=== PATIENT | male | born 1950 | race Caucasian/White ===

== ENCOUNTER 2019-03-22 16:38 | Inpatient (IN) | payer MEDICAID ==
[~2019-03-22] VITALS: Ht 170.2 cm; Wt 70.0 kg
[2019-03-22] MEDS ORDERED: SOD CHLORIDE 0.9% 1,000 ML IV STA (16:47)
[2019-03-22] MEDS ORDERED: ONDANSETRON 4 MG INJ IV PRN ×2 (18:00→19:30)
[2019-03-22] MEDS ORDERED: ACETAMINOPHEN 325 MG TAB PO PRN ×2 (18:00→19:30)
[2019-03-22] MEDS ORDERED: AMLO-147 PO (18:01)
[2019-03-22] MEDS ORDERED: PSEU60TA2 PO (18:01)
[2019-03-22] MEDS ORDERED: TAMS-14 PO (18:02)
[2019-03-22] MEDS ORDERED: HYDR25TA6 PO (18:02)
[2019-03-22] MEDS ORDERED: DOCU-144 PO (18:03)
[2019-03-22] MEDS ORDERED: MULTI PO (18:03)
[2019-03-22] MEDS ORDERED: HYDR10FO PR (18:04)
--- NOTE | 2019-03-22 19:17 | HP ---
Date/Time of Note Date/Time of Note DATE: 03/22/19 TIME: 19:11 Assessment/Plan VTE Prophylaxis Pharmacological prophylaxis: apixaban Lines/Catheters IV Catheter Type (from [facility]): [facility] Assessment/Plan Hospital Course 1. A. fib-newly diagnosed Patient with 6 months of intermittent palpitations but no prior diagnosis of A. fib Check thyroid panel and echo Cardiology consultation with obtained Start Eliquis 2. Pulmonary edema Chest x-ray shows mild pulmonary vascular congestion and a small left pleural effusion Lasix 40 mg IV daily Follow-up on echo 3. Hypertension Continue home meds 4. BPH Continue home meds 5. Mild hypernatremia Monitor No IV fluids at this time secondary to pulmonary edema Prophylaxis: Eliquis Result Diagram: 03/22/19 1653 03/22/19 1653 Results 24hrs Laboratory Tests Test 03/22/19 16:53 White Blood Count 5.7 Red Blood Count 4.94 Hemoglobin 14.9 Hematocrit 45.5 Mean Corpuscular Volume 92.1 Mean Corpuscular Hemoglobin 30.2 Mean Corpuscular Hemoglobin Concent 32.7 Red Cell Distribution Width 12.3 Platelet Count 198 Mean Platelet Volume 9.7 Immature Granulocytes % 0.200 Neutrophils % 55.0 Lymphocytes % 31.4 Monocytes % 7.9 Eosinophils % 4.4 Basophils % 1.1 Nucleated Red Blood Cells % 0.0 Immature Granulocytes # 0.010 Neutrophils # 3.1 Lymphocytes # 1.8 Monocytes # 0.5 Eosinophils # 0.3 Basophils # 0.1 Nucleated Red Blood Cells # 0.0 Sodium Level 145 H Potassium Level 3.9 Chloride Level 110 Carbon Dioxide Level 24 Anion Gap 11 Blood Urea Nitrogen 27 H Creatinine 1.12 Est Glomerular Filtrat Rate mL/min > 60 Glucose Level 153 Calcium Level 9.8 Magnesium Level 2.1 Troponin I < 0.012 Thyroid Stimulating Hormone (TSH) 2.990 Free Thyroxine 0.85 HPI/ROS Admit Date/Time Admit Date/Time March 22, 2019 Hx of Present Illness Patient is a 68-year-old male with a history of BPH, hypertension who presents with 6 months of intermittent palpitations. Patient does have a PCP and a clinic but has not been told that he has an arrhythmia and has not been referred to a outside b2[employer] sales. Patient denies any cardiac history or history of stroke. Patient presents today due to worsening palpitations, patient denies chest pain or shortness of breath. In the ER patient was noted to be in A. fib with a controlled rate, CXR showed mild pulmonary vascular congestion and a small left pleural effusion. Patient has no other complaints at this time. ROS Constitutional: no complaints, improved Eyes: no complaints ENT: no complaints Respiratory: no complaints Cardiovascular: palpitations Gastrointestinal: no complaints Genitourinary: no complaints Musculoskeletal: no complaints Skin: no complaints Neurologic: no complaints Endocrine: no complaints Lymphatic: no complaints Psychological: no complaints, nl mood/affect Immunologic: no complaints PMH/Family/Social Past Medical History BPH and hypertension Medications Current Medications Ondansetron HCl (Zofran Inj) 4 mg ER BRIDGE PRN IV NAUSEA/VOMITING; Start 03/22/19 at 18:00; Stop 03/23/19 at 17:59 Acetaminophen (Tylenol Tab) 650 mg ER BRIDGE PRN PO .MILD PAIN 1-3 OR TEMP; Start 03/22/19 at 18:00; Stop 03/23/19 at 17:59 Coded Allergies: No Known Allergy (Unverified , 03/22/19) Past Surgical History Testicular surgery, unclear what type Family History Significant Family History: other (Brother with Indira. bessy) Social History Alcohol Use: none Smoking Status: Never smoker Drug Use: none Exam/Review of Systems Vital Signs Vitals Vital Signs Date Temp Pulse Resp B/P (MAP) Pulse Ox O2 O2 Flow FiO2 Time Delivery Rate 03/22/19 83 18 138/88 97 Room Air 18:30 (105) 03/22/19 98.5 18:00 Exam Constitutional: alert, oriented Respiratory: clear to auscultation Cardiovascular: irregular rhythm Gastrointestinal: soft; No distended Musculoskeletal: nl extremities to inspection MELIA ROSEN Mar 22, 2019 19:17
[2019-03-22] MEDS ORDERED: ZOLPIDEM 5 MG TAB PO PRN (19:30)
[2019-03-22] MEDS ORDERED: NACL 0.9% 3 ML SYG IV SCH (19:30)
[2019-03-22] MEDS ORDERED: HYDROCODONE/APAP (5/325) TAB PO PRN (19:30)
[2019-03-22] MEDS ORDERED: DOCUSATE SODIUM 100 MG CAP PO PRN (19:30)
[2019-03-22] MEDS ORDERED: morphine 2 MG INJ IV PRN (19:30)
--- NOTE | 2019-03-22 19:34 | ERD ---
ER Documentation Chief Complaint Chief Complaint palpitations coming from clinic started today now new onset afib HPI Patient is a 68-year-old male with hypertension who presents with palpitations. The patient was brought in by ambulance. The symptoms started 6 months ago but is been worse over the past 1 week. The patient denies pain. Upon review of old medical records this is the patient's first visit to the [facility]. He does not remember the name of his primary doctor. The patient has no history of atrial fibrillation or flutter. ROS All systems reviewed and are negative except as per history of present illness. Medications Home Meds Reported Medications Hydrocortisone/Pramoxine* (Proctofoam-HC*) 1%-10 Gm Foam, 1 APPLIC ID BID, EA 03/22/19 Multivitamins* (Theragran*) 1 Tab Tab, 1 TAB PO DAILY, TAB 03/22/19 Docusate Sodium* (Colace*) 100 Mg Capsule, 100 MG PO DAILY, #30 CAP 03/22/19 Tamsulosin Hcl* (Flomax*) 0.4 Mg Cap.er.24h, 0.8 MG PO HS, CAP 03/22/19 Hydrochlorothiazide* (Hydrochlorothiazide*) 25 Mg Tab, 25 MG PO DAILY, #30 TAB 03/22/19 Amlodipine Besylate* (Amlodipine Besylate*) 10 Mg Tablet, 10 MG PO DAILY, #30 TAB 03/22/19 Pseudoephedrine Hcl* (Pseudoephedrine Hcl*) 60 Mg Tablet, 60 MG PO Q8H PRN for CONGESTION, TAB 03/22/19 Allergies Allergies: Coded Allergies: No Known Allergy (Unverified , 03/22/19) PMhx/Soc Anesthesia Reaction: No Hx Neurological Disorder: No Hx Respiratory Disorders: No Hx Cardiac Disorders: Yes (HTN) Hx Psychiatric Problems: No Hx Miscellaneous Medical Probl: Yes (PROSTATE PROBLEM) Hx Alcohol Use: No Hx Substance Use: No Hx Tobacco Use: No Smoking Status: Never smoker FmHx Family History: diabetes Physical Exam Vitals Vital Signs Date Temp Pulse Resp B/P (MAP) Pulse Ox O2 O2 Flow FiO2 Time Delivery Rate 03/22/19 74 16 123/74 97 Room Air 17:30 (90) 03/22/19 70 18 120/85 98 Room Air 17:00 (97) 03/22/19 97.8 70 18 141/81 99 16:48 (101) Physical Exam Const: No acute distress Head: Atraumatic Eyes: Normal Conjunctiva ENT: Normal External Ears, Nose and Mouth. Neck: Full range of motion. No meningismus. Resp: Clear to auscultation bilaterally Cardio: Regular rate with irregular rhythm Abd: Soft, non tender, non distended. Normal bowel sounds Skin: No petechiae or rashes Back: No midline or flank tenderness Ext: No cyanosis, or edema Neur: Awake and alert Psych: Normal Mood and Affect Result Diagram: 03/22/193 03/22/191652 Results 24 hrs Laboratory Tests Test 03/22/19 16:53 White Blood Count 5.7 10^3/ul Red Blood Count 4.94 10^6/ul Hemoglobin 14.9 g/dl Hematocrit 45.5 % Mean Corpuscular Volume 92.1 fl Mean Corpuscular Hemoglobin 30.2 pg Mean Corpuscular Hemoglobin Concent 32.7 g/dl Red Cell Distribution Width 12.3 % Platelet Count 198 10^3/UL Mean Platelet Volume 9.7 fl Immature Granulocytes % 0.200 % Neutrophils % 55.0 % Lymphocytes % 31.4 % Monocytes % 7.9 % Eosinophils % 4.4 % Basophils % 1.1 % Nucleated Red Blood Cells % 0.0 /100WBC Immature Granulocytes # 0.010 10^3/ul Neutrophils # 3.1 10^3/ul Lymphocytes # 1.8 10^3/ul Monocytes # 0.5 10^3/ul Eosinophils # 0.3 10^3/ul Basophils # 0.1 10^3/ul Nucleated Red Blood Cells # 0.0 10^3/ul Sodium Level 145 mmol/L Potassium Level 3.9 mmol/L Chloride Level 110 mmol/L Carbon Dioxide Level 24 mmol/L Anion Gap 11 Blood Urea Nitrogen 27 mg/dl Creatinine 1.12 mg/dl Est Glomerular Filtrat Rate mL/min > 60 mL/min Glucose Level 153 mg/dl Calcium Level 9.8 mg/dl Magnesium Level 2.1 mg/dl Troponin I < 0.012 ng/ml Thyroid Stimulating Hormone (TSH) 2.990 MIU/L Free Thyroxine 0.85 ng/dl Current Medications Medications Dose Sig/Shayla Start Time Status Last (Trade) Ordered Route PRN Stop Time Admin Dose Reason Admin Sodium 1,000 ml @ Q1H STAT 7/15/19 DC 03/22/19 Chloride 1,000 mls/hr IV 16:47 17:06 03/22/19 17:46 Procedures/MDM EKG read by me: Rate/Rhythm: Atrial fibrillation at a controlled rate Intervals: Normal Impression: Atrial fibrillation without ischemia Chest x-ray read by radiology. Patient is a 68-year-old male with hypertension who presents with new onset atrial fibrillation. The patient has a controlled rate at this time. The patient will be admitted to the care of the panel team to a telemetry inpatient bed. Laboratory studies were basically within normal limits. Departure Diagnosis: Primary Impression: New onset a-fib Condition: Serious CHARISMA SIMPSON MD Mar 22, 2019 19:34
--- NOTE | 2019-03-22 20:16 | CONS ---
Assessment/Plan Assessment/Plan Hospital Course (Demo Recall) Teresa fib Palpitations Hypertension [place] vascular congestion History of BPH Recommendation: Cardiac enzyme will be checked to evaluate and rule out myocardial infarction Eliquis and diuretic has been started Patient heart rate appears to be very stable and under control on home medication. Echocardiogram has been ordered Thank you MARIPOSA DAMICO MD [facility] Consultation Date/Type/Reason Admit Date/Time March 22, 2019 Date of Consultation: Mar 22, 2019 Type of Consult Cardiology Reason for Consultation AFIB Requesting Provider: MELIA ROSEN Date/Time of Note DATE: 03/22/19 TIME: 20:12 Hx of Present Illness Interventional cardiology consultation note Chief complaint: Palpitations Reason for consult: A. fib History of present illness: Thank you for this referral. This is a pleasant 68-year-old gentleman with history of hypertension who came to emergency room complaining of palpitation. Patient is a poor historian. Said he has had palpitation over the past 6 months. He came in today because of the same reason and was noted to have atrial fibrillation emergency room. His heart has been under good control. Is not on any AV lory agent blockers in fact. He denies any history of stroke to me denies any bleeding to me denies any chest pain or pressure to me. At the current moment he denies any palpitation to me although he is still continues to be in atrial fibrillation Allergies: No known drug allergies Medications were reviewed as per medical reconciliation sheet Family history: No history of early coronary artery disease Social history: Non-smoker Past medical history: Hypertension, BPH Review of system: Patient denies all others except for above-mentioned Past Medical History Home Meds Reported Medications Hydrocortisone/Pramoxine* (Proctofoam-HC*) 1%-10 Gm Foam, 1 APPLIC NM BID, EA 03/22/19 Multivitamins* (Theragran*) 1 Tab Tab, 1 TAB PO DAILY, TAB 03/22/19 Docusate Sodium* (Colace*) 100 Mg Capsule, 100 MG PO DAILY, #30 CAP 03/22/19 Tamsulosin Hcl* (Flomax*) 0.4 Mg Cap.er.24h, 0.8 MG PO HS, CAP 03/22/19 Hydrochlorothiazide* (Hydrochlorothiazide*) 25 Mg Tab, 25 MG PO DAILY, #30 TAB 03/22/19 Amlodipine Besylate* (Amlodipine Besylate*) 10 Mg Tablet, 10 MG PO DAILY, #30 TAB 03/22/19 Pseudoephedrine Hcl* (Pseudoephedrine Hcl*) 60 Mg Tablet, 60 MG PO Q8H PRN for CONGESTION, TAB 03/22/19 Medications Current Medications Ondansetron HCl (Zofran Inj) 4 mg ER BRIDGE PRN IV NAUSEA/VOMITING; Start 03/22/19 at 18:00; Stop 03/23/19 at 17:59 Acetaminophen (Tylenol Tab) 650 mg ER BRIDGE PRN PO .MILD PAIN 1-3 OR TEMP; Start 03/22/19 at 18:00; Stop 03/23/19 at 17:59 IV Flush (NS 3 ml) 3 ml PER PROTOCOL IV ; Start 03/22/19 at 19:30 Ondansetron HCl (Zofran Inj) 4 mg Q6H PRN IV NAUSEA/VOMITING; Start 03/22/19 at 19:30 Acetaminophen (Tylenol Tab) 650 mg Q6H PRN PO .PAIN 1-3 OR TEMP; Start 03/22/19 at 19:30 Acetaminophen/ Hydrocodone Bitart ([place] (5/325)) 1 tab Q6H PRN PO .MOD PAIN 4- 6; Start 03/22/19 at 19:30 Morphine Sulfate (morphine) 2 mg Q4H PRN IV .SEVERE PAIN 7-10; Start 03/22/19 at 19:30 Docusate Sodium (Colace) 100 mg Q12H PRN PO .CONSTIPATION; Start 03/22/19 at 19:30 Zolpidem Tartrate (Ambien) 5 mg QHS PRN PO .INSOMNIA; Start 03/22/19 at 19:30 Furosemide (Lasix) 40 mg DAILY IV ; Start 03/23/19 at 09:00 Amlodipine Besylate (Norvasc) 10 mg DAILY PO ; Start 03/23/19 at 09:00 Docusate Sodium (Colace) 100 mg DAILY PO ; Start 03/23/19 at 09:00 Multivitamins Therapeutic (Theragran) 1 tab DAILY PO ; Start 03/23/19 at 09:00 Tamsulosin HCl (Flomax) 0.8 mg HS PO ; Start 03/22/19 at 21:00 Apixaban (Eliquis) 5 mg BID PO ; Start 03/22/19 at 21:00 Allergies: Coded Allergies: No Known Allergy (Unverified , 03/22/19) Social History Alcohol Use: none Smoking Status: Never smoker Drug Use: none Exam/Review of Systems Vital Signs Vitals Vital Signs Date Temp Pulse Resp B/P (MAP) Pulse Ox O2 O2 Flow FiO2 Time Delivery Rate 03/22/19 83 18 138/88 97 Room Air 18:30 (105) 03/22/19 98.5 18:00 Exam Exam General: no acute distress HEENT: NC/AT. pupils are equal. round. NECK: NO JVD. no stridor. CV: Irregularly irregular. systolic murmur; no gallop or rubs. PULM: no wheezing or rhonchi. GI: SOFT, NT, ND, no rebound or guarding Extremity: trace B/L LE edema. no clubbing. neuro: awake and alert, OX3. Psych: calm and pleasant rectal: deferred : normal EKG was personally reviewed which shows atrial fibrillation/flutter with controlled heart rate Chest x-ray shows: Low lung volumes with mild pulmonary vascular congestion and a small left pleural effusion. Labs Result Diagram: 03/22/19 1653 03/22/19 1653 Results 24hrs Laboratory Tests Test 03/22/19 16:53 White Blood Count 5.7 Red Blood Count 4.94 Hemoglobin 14.9 Hematocrit 45.5 Mean Corpuscular Volume 92.1 Mean Corpuscular Hemoglobin 30.2 Mean Corpuscular Hemoglobin Concent 32.7 Red Cell Distribution Width 12.3 Platelet Count 198 Mean Platelet Volume 9.7 Immature Granulocytes % 0.200 Neutrophils % 55.0 Lymphocytes % 31.4 Monocytes % 7.9 Eosinophils % 4.4 Basophils % 1.1 Nucleated Red Blood Cells % 0.0 Immature Granulocytes # 0.010 Neutrophils # 3.1 Lymphocytes # 1.8 Monocytes # 0.5 Eosinophils # 0.3 Basophils # 0.1 Nucleated Red Blood Cells # 0.0 Sodium Level 145 H Potassium Level 3.9 Chloride Level 110 Carbon Dioxide Level 24 Anion Gap 11 Blood Urea Nitrogen 27 H Creatinine 1.12 Est Glomerular Filtrat Rate mL/min > 60 Glucose Level 153 Calcium Level 9.8 Magnesium Level 2.1 Troponin I < 0.012 Thyroid Stimulating Hormone (TSH) 2.990 Free Thyroxine 0.85 Medications Medications Current Medications Ondansetron HCl (Zofran Inj) 4 mg ER BRIDGE PRN IV NAUSEA/VOMITING; Start 03/22/19 at 18:00; Stop 03/23/19 at 17:59 Acetaminophen (Tylenol Tab) 650 mg ER BRIDGE PRN PO .MILD PAIN 1-3 OR TEMP; Start 03/22/19 at 18:00; Stop 03/23/19 at 17:59 IV Flush (NS 3 ml) 3 ml PER PROTOCOL IV ; Start 03/22/19 at 19:30 Ondansetron HCl (Zofran Inj) 4 mg Q6H PRN IV NAUSEA/VOMITING; Start 03/22/19 at 19:30 Acetaminophen (Tylenol Tab) 650 mg Q6H PRN PO .PAIN 1-3 OR TEMP; Start 03/22/19 at 19:30 Acetaminophen/ Hydrocodone Bitart ([place] (5/325)) 1 tab Q6H PRN PO .MOD PAIN 4- 6; Start 03/22/19 at 19:30 Morphine Sulfate (morphine) 2 mg Q4H PRN IV .SEVERE PAIN 7-10; Start 03/22/19 at 19:30 Docusate Sodium (Colace) 100 mg Q12H PRN PO .CONSTIPATION; Start 03/22/19 at 19:30 Zolpidem Tartrate (Ambien) 5 mg QHS PRN PO .INSOMNIA; Start 03/22/19 at 19:30 Furosemide (Lasix) 40 mg DAILY IV ; Start 03/23/19 at 09:00 Amlodipine Besylate (Norvasc) 10 mg DAILY PO ; Start 03/23/19 at 09:00 Docusate Sodium (Colace) 100 mg DAILY PO ; Start 03/23/19 at 09:00 Multivitamins Therapeutic (Theragran) 1 tab DAILY PO ; Start 03/23/19 at 09:00 Tamsulosin HCl (Flomax) 0.8 mg HS PO ; Start 03/22/19 at 21:00 Apixaban (Eliquis) 5 mg BID PO ; Start 03/22/19 at 21:00 MARIPOSA DAMICO MD Mar 22, 2019 20:16
[2019-03-22] MEDS: APIXABAN 5 MG TABLET PO SCH (20:28)
[2019-03-22 20:38] VITALS: BP 121/74; PULSE 74; RESP 18
[2019-03-22 21:00] VITALS: Ht 170.2 cm; Wt 70.0 kg
[2019-03-22] MEDS ORDERED: TAMSULOSIN (SR) 0.4 MG CAP PO SCH (21:00)
[2019-03-23 00:41] VITALS: BP 118/78; PULSE 60; RESP 16
[2019-03-23 04:35] VITALS: BP 124/68; PULSE 64; RESP 18
[2019-03-23 08:00] VITALS: BP 129/70; PULSE 51; RESP 18
--- NOTE | 2019-03-23 08:12 | CONS ---
Consult Date/Type/Reason Admit Date/Time Mar 22, 2019 at 17:43 Initial Consult Date 03/22/19 Type of Consultation: cv Requesting Provider: MELIA ROSEN Date/Time of Note DATE: 03/23/19 TIME: 08:08 Subjective Cardiology follow-up progress note Subjective: Case discussed with staff and telemetry was reviewed. Patient converted to sinus rhythm overnight. Denies any palpitation chest pain to me Objective: General: no acute distress HEENT: NC/AT. pupils are equal. round. NECK: NO JVD. no stridor. CV: RRR. systolic murmur; no gallop or rubs. PULM: no wheezing or rhonchi. GI: SOFT, NT, ND, no rebound or guarding Extremity: trace B/L LE edema. no clubbing. neuro: awake and alert, OX3. Psych: calm and pleasant rectal: deferred : normal Objective Vitals Vital Signs Date Temp Pulse Resp B/P (MAP) Pulse Ox O2 O2 Flow FiO2 Time Delivery Rate 03/23/19 98.0 51 18 129/70 98 08:00 (89) 03/23/19 Room Air 04:35 Intake and Output 03/22/19 03/22/19 03/23/19 1515:00 23:00 07:00 IntakeIntake Total 1000 ml OutputOutput Total 1400 ml BalanceBalance -400 ml Results/Medications Result Diagram: 03/23/19 0456 03/23/19 0456 Results 24 hrs Laboratory Tests Test 03/22/19 16:53 03/22/19 22:26 03/23/19 04:52 03/23/19 04:54 White Blood Count 5.7 Red Blood Count 4.94 Hemoglobin 14.9 Hematocrit 45.5 Mean Corpuscular 92.1 Volume Mean Corpuscular 30.2 Hemoglobin Mean Corpuscular 32.7 Hemoglobin Concent Red Cell 12.3 Distribution Width Platelet Count 198 Mean Platelet Volume 9.7 Immature 0.200 Granulocytes % Neutrophils % 55.0 Lymphocytes % 31.4 Monocytes % 7.9 Eosinophils % 4.4 Basophils % 1.1 Nucleated Red Blood 0.0 Cells % Immature 0.010 Granulocytes # Neutrophils # 3.1 Lymphocytes # 1.8 Monocytes # 0.5 Eosinophils # 0.3 Basophils # 0.1 Nucleated Red Blood 0.0 Cells # Sodium Level 145 H Potassium Level 3.9 Chloride Level 110 Carbon Dioxide Level 24 Anion Gap 11 Blood Urea Nitrogen 27 H Creatinine 1.12 Est Glomerular > 60 Filtrat Rate mL/min Glucose Level 153 Calcium Level 9.8 Magnesium Level 2.1 2.1 Troponin I < 0.012 < 0.012 Thyroid Stimulating 2.990 Hormone (TSH) Free Thyroxine 0.85 Creatine Kinase 146 Creatine Kinase 0.8 Index Creatinine Kinase MB 1.16 (Mass) Phosphorus Level 3.7 Triglycerides Level 107 Cholesterol Level 170 LDL Cholesterol, 117 Calculated HDL Cholesterol 32 Cholesterol/HDL 5.3 Ratio Free Thyroxine Index 2.13 Thyroxine (T4) 4.3 L Triiodothyronine 49.5 H (T3) Uptake Hemoglobin A1c 5.5 Test 03/23/19 04:56 White Blood Count 6.1 Red Blood Count 4.61 L Hemoglobin 14.0 Hematocrit 42.7 Mean Corpuscular 92.6 Volume Mean Corpuscular 30.4 Hemoglobin Mean Corpuscular 32.8 Hemoglobin Concent Red Cell 12.3 Distribution Width Platelet Count 196 Mean Platelet Volume 10.1 Immature 0.200 Granulocytes % Neutrophils % 64.2 Lymphocytes % 22.2 Monocytes % 7.7 Eosinophils % 4.9 Basophils % 0.8 Nucleated Red Blood 0.0 Cells % Immature 0.010 Granulocytes # Neutrophils # 3.9 Lymphocytes # 1.4 Monocytes # 0.5 Eosinophils # 0.3 Basophils # 0.1 Nucleated Red Blood 0.0 Cells # Prothrombin Time 13.7 Prothrombin Time 1.1 Ratio INR International 1.04 Normalized Ratio Sodium Level 144 Potassium Level 3.9 Chloride Level 110 Carbon Dioxide Level 26 Anion Gap 8 Blood Urea Nitrogen 19 Creatinine 0.97 Est Glomerular > 60 Filtrat Rate mL/min Glucose Level 97 # Calcium Level 9.5 Total Bilirubin 0.7 Direct Bilirubin 0.00 Indirect Bilirubin 0.7 Aspartate Amino 21 Transf (AST/SGOT) Alanine 22 Aminotransferase (AL T/SGPT) Alkaline Phosphatase 51 Creatine Kinase 124 Creatine Kinase 0.9 Index Creatinine Kinase MB 1.15 (Mass) Troponin I 0.015 B-Type Natriuretic 423 H Peptide Total Protein 7.2 Albumin 4.0 Globulin 3.20 Albumin/Globulin 1.25 Ratio Free Thyroxine 0.83 Home Meds Reported Medications Hydrocortisone/Pramoxine* (Proctofoam-HC*) 1%-10 Gm Foam, 1 APPLIC CA BID, EA 03/22/19 Multivitamins* (Theragran*) 1 Tab Tab, 1 TAB PO DAILY, TAB 03/22/19 Docusate Sodium* (Colace*) 100 Mg Capsule, 100 MG PO DAILY, #30 CAP 03/22/19 Tamsulosin Hcl* (Flomax*) 0.4 Mg Cap.er.24h, 0.8 MG PO HS, CAP 03/22/19 Hydrochlorothiazide* (Hydrochlorothiazide*) 25 Mg Tab, 25 MG PO DAILY, #30 TAB 03/22/19 Amlodipine Besylate* (Amlodipine Besylate*) 10 Mg Tablet, 10 MG PO DAILY, #30 TAB 03/22/19 Pseudoephedrine Hcl* (Pseudoephedrine Hcl*) 60 Mg Tablet, 60 MG PO Q8H PRN for CONGESTION, TAB 03/22/19 Medications Current Medications Ondansetron HCl (Zofran Inj) 4 mg ER BRIDGE PRN IV NAUSEA/VOMITING; Start 03/22/19 at 18:00; Stop 03/23/19 at 17:59 Acetaminophen (Tylenol Tab) 650 mg ER BRIDGE PRN PO .MILD PAIN 1-3 OR TEMP; Start 03/22/19 at 18:00; Stop 03/23/19 at 17:59 IV Flush (NS 3 ml) 3 ml PER PROTOCOL IV ; Start 03/22/19 at 19:30 Ondansetron HCl (Zofran Inj) 4 mg Q6H PRN IV NAUSEA/VOMITING; Start 03/22/19 at 19:30 Acetaminophen (Tylenol Tab) 650 mg Q6H PRN PO .PAIN 1-3 OR TEMP; Start 03/22/19 at 19:30 Acetaminophen/ Hydrocodone Bitart ([place] (5/325)) 1 tab Q6H PRN PO .MOD PAIN 4- 6; Start 03/22/19 at 19:30 Morphine Sulfate (morphine) 2 mg Q4H PRN IV .SEVERE PAIN 7-10; Start 03/22/19 at 19:30 Docusate Sodium (Colace) 100 mg Q12H PRN PO .CONSTIPATION; Start 03/22/19 at 19:30 Zolpidem Tartrate (Ambien) 5 mg QHS PRN PO .INSOMNIA; Start 03/22/19 at 19:30 Furosemide (Lasix) 40 mg DAILY IV ; Start 03/23/19 at 09:00 Amlodipine Besylate (Norvasc) 10 mg DAILY PO ; Start 03/23/19 at 09:00 Docusate Sodium (Colace) 100 mg DAILY PO ; Start 03/23/19 at 09:00 Multivitamins Therapeutic (Theragran) 1 tab DAILY PO ; Start 03/23/19 at 09:00 Tamsulosin HCl (Flomax) 0.8 mg HS PO Last administered on 03/22/19at 20:28; Admin Dose 0.8 MG; Start 03/22/19 at 21:00 Apixaban (Eliquis) 5 mg BID PO Last administered on 03/22/19at 20:28; Admin Dose 5 MG; Start 03/22/19 at 21:00 Assessment/Plan Hospital Course (Demo Recall) P-A fib: Currently has converted back to sinus rhythm Palpitations Hypertension MILD vascular congestion History of BPH Recommendation: Myocardial infarction was ruled out Eliquis and diuretic has been started Echocardiogram has been ordered I will start the patient on Rythmol and digoxin to maintain him in sinus rhythm CHECK ECG today DC planning once okay with internal medicine Thank you MARIPOSA DAMICO MD [facility] MARIPOSA DAMICO MD Mar 23, 2019 08:12
[2019-03-23] MEDS: APIXABAN 5 MG TABLET PO SCH (08:47)
--- NOTE | 2019-03-23 08:55 | RADRPT ---
Echocardiogram Report Patient Name: TANIKA KELSEYPatient ID: [id number] : 1950 (68y 11m)Study Date: 03/23/2019 7:18:09 AM Gender: MAccession #: [id number] Tech: MartinZulay Galan [facility] Location: [facility] Ref.Physician: MELIA ROSEN Height(Cm): BSA: Weight(Kg): Quality: AdequateOrder Physician: MELIA ROSEN Account #: Procedures: Echocardiographic Report: Transthoracic echocardiogram with complete 2D, M-Mode, and doppler examination. Indications: Atrial Fibrillation. Measurements: 2D/M Mode Doppler Measurement Value Normal Range Measurement Value Normal Range LVIDd 2D 4.8 [ 4.2 - 5.8 ] cm AV Peak Wu 1.6 [ 100.0 - 170.0 ] cm/sec LVIDs 2D 2.0 [ 2.5 - 4.0 ] cm AV Peak PG 10.0 [ 2.0 - 9.0 ] mmHg LVPWd 2D 1.2 [ 0.6 - 1.0 ] cm LVOT Peak Wu 1.4 [ 70.0 - 110.0 ] cm/sec IVSd 2D 1.2 [ 0.6 - 1.0 ] cm LVOT Peak PG 8.0 [ 2.0 - 6.0 ] mmHg AoR Diam 2D 3.1 [ 2.6 - 3.4 ] cm MV E Peak Wu 0.8 [ 60.0 - 130.0 ] cm/sec EDV 2D 105.0 [ 62.0 - 150.0 ] ml MV A Peak Wu 1.1 [ 100.0 - 120.0 ] cm/sec ESV 2D 12.2 [ 21.0 - 61.0 ] ml MV E/A 0.7 [ 0.8 - 1.5 ] ratio EF 2D 88.4 [ 52.0 - 72.0 ] percent MV Decel Time 187 [ 104 - 258 ] msec LA Dimen 2D 3.8 [ 3.0 - 4.0 ] cm Lat E` Wu 0.1 [ 10.0 - 15.0 ] cm/sec Lateral E/E` 10.4 [ 1.0 - 2.0 ] ratio Med E` Wu 0.1 cm/sec MV E/A 0.7 [ 0.8 - 1.5 ] ratio Findings: Left Ventricle: Normal left ventricular systolic function. Normal left ventricular cavity size. Mild concentric left ventricular hypertrophy. Ejection fraction is visually estimated at 65 %. Tissue Doppler/Mitral Doppler indices are consistent with impaired relaxation (Stage I diastolic dysfunction). Right Ventricle: Normal right ventricular size. Normal right ventricular systolic function. Left Atrium: There is mild enlargement of left atrium. Right Atrium: The right atrium is normal in size. Mitral Valve: Normal appearance and function of the mitral valve with trace physiologic regurgitation. Aortic Valve: Normal appearance of the aortic valve. No significant aortic stenosis or insufficiency. Tricuspid Valve: Normal appearance and function of the tricuspid valve with trace physiologic regurgitation. Normal right ventricular systolic pressure. Pulmonic Valve: Pulmonic valve not well visualized. Pericardium: Normal pericardium with no significant pericardial effusion. Aorta: Normal aortic root. IVC: Normal size and normal respiratory collapse consistent with normal right atrial pressure. Conclusions: There is mild enlargement of left atrium. Normal left ventricular systolic function. Normal left ventricular cavity size. Mild concentric left ventricular hypertrophy. Ejection fraction is visually estimated at 65 %. Tissue Doppler/Mitral Doppler indices are consistent with impaired relaxation (Stage I diastolic dysfunction). Normal appearance and function of the mitral valve with trace physiologic regurgitation. Normal appearance of the aortic valve. No significant aortic stenosis or insufficiency. Normal appearance and function of the tricuspid valve with trace physiologic regurgitation. Normal right ventricular systolic pressure. Normal size and normal respiratory collapse consistent with normal right atrial pressure. Electronically Signed By: Franklin Nguyen 2019-03-23 08:54:44 PDT
[2019-03-23] MEDS ORDERED: DOCUSATE SODIUM 100 MG CAP PO SCH (09:00)
[2019-03-23] MEDS ORDERED: MULTIVITAMINS THERAPEUTIC TAB PO SCH (09:00)
[2019-03-23] MEDS ORDERED: AMLODIPINE 10 MG TAB PO SCH (09:00)
[2019-03-23] MEDS ORDERED: FUROSEMIDE 40 MG INJ IV SCH (09:00)
[2019-03-23] MEDS ORDERED: PROPAFENONE 150 MG TAB PO SCH (09:00)
[2019-03-23] MEDS ORDERED: DIGO125T PO (10:04)
[2019-03-23] MEDS ORDERED: APIX5TAB PO (10:04)
[2019-03-23] MEDS ORDERED: PROP150T2 PO (10:04)
--- NOTE | 2019-03-23 10:05 | PDOCDIS ---
Discharge Instructions CONDITION [id number] Patient Condition: [id number] Good HOME CARE INSTRUCTIONS: [id number] Diet Instructions: [id number] Regular ACTIVITY: [id number] Activity Restrictions: [id number] No Restrictions FOLLOW UP/APPOINTMENTS Follow-up Plan FOLLOW UP WITH A PCP IN 1-2 WEEKS, FOLLOW UP WITH A ASSISTANT BUYER MELIA ROSEN Mar 23, 2019 10:05
[2019-03-23 12:49] VITALS: BP 125/67; PULSE 72; RESP 18
[2019-03-23] MEDS ORDERED: DIGOXIN 0.125 MG TAB PO SCH (13:00)
[2019-03-23] MEDS ORDERED: RIVA20TA5 PO (14:43)
[2019-03-23] MEDS ORDERED: AMIO100T4 PO (14:43)
[2019-03-23] MEDS ORDERED: AMIO200T4 PO (14:43)
--- NOTE | 2019-03-23 15:22 | DS ---
Date/Time of Note Date/Time of Note DATE: 03/23/19 TIME: 15:18 Discharge Summary Admission/Discharge Info Admit Date/Time Mar 22, 2019 at 17:43 Discharge Date/Time Mar 23, 2019 at 11:47 Discharge Diagnosis 1. A. fib-newly diagnosed Patient with 6 months of intermittent palpitations but no prior diagnosis of A. fib Thyroid panel and echo are within normal limits Cardiology consultation with appreciated, DC with Rythmol, digoxin and Eliquis 2. Pulmonary edema Chest x-ray shows mild pulmonary vascular congestion and a small left pleural effusion Status post Lasix 40 mg IV 3. Hypertension Continue home meds 4. BPH Continue home meds 5. Mild hypernatremia Resolved Patient Condition: Good Hospital Course Patient is a 68-year-old male with a history of BPH, hypertension who presents with 6 months of intermittent palpitations. In ER patient was noted to be in A. fib, rate was controlled. Patient has no prior known history of A. fib, echo and there panel within normal limits and patient converted to sinus overnight. Patient was seen by cardiology the recommendation was to DC with Rythmol, digoxin and Eliquis. Patient did have mild pulmonary edema on arrival, patient was given Lasix 40 mg IV x1, patient had no reports of shortness of breath and echo showed preserved EF, etiology of mild pulmonary edema was secondary to A. fib. On the day of discharge patient's vitals, labs of his exam are stable. Home Meds Active Scripts Amiodarone Hcl* (Amiodarone Hcl*) 100 Mg Tablet, 100 MG PO DAILY, #30 TAB Prov:MELIA ROSEN 03/23/19 Amiodarone Hcl* (Amiodarone Hcl*) 200 Mg Tablet, 200 MG PO BID for 14 Days, #28 TAB Prov:MELIA ROSEN 03/23/19 Rivaroxaban* (Xarelto*) 20 Mg Tablet, 20 MG PO WITH DINNER, #60 TAB Prov:MELIA ROSEN 03/23/19 Propafenone Hcl* (Propafenone Hcl*) 150 Mg Tablet, 150 MG PO Q8, #90 TAB 1 Refill Prov:MELIA ROSEN 03/23/19 Digoxin* (Digitek*) 125 Mcg Tablet, 0.125 MG PO DAILY@13 for 30 Days, #30 TAB Prov:MELIA ROSEN 03/23/19 Apixaban* (Eliquis*) 5 Mg Tablet, 5 MG PO BID, #60 TAB 1 Refill Prov:MELIA ROSEN 03/23/19 Reported Medications Hydrocortisone/Pramoxine* (Proctofoam-HC*) 1%-10 Gm Foam, 1 APPLIC MO BID, EA 03/22/19 Multivitamins* (Theragran*) 1 Tab Tab, 1 TAB PO DAILY, TAB 03/22/19 Docusate Sodium* (Colace*) 100 Mg Capsule, 100 MG PO DAILY, #30 CAP 03/22/19 Tamsulosin Hcl* (Flomax*) 0.4 Mg Cap.er.24h, 0.8 MG PO HS, CAP 03/22/19 Hydrochlorothiazide* (Hydrochlorothiazide*) 25 Mg Tab, 25 MG PO DAILY, #30 TAB 03/22/19 Amlodipine Besylate* (Amlodipine Besylate*) 10 Mg Tablet, 10 MG PO DAILY, #30 TAB 03/22/19 Pseudoephedrine Hcl* (Pseudoephedrine Hcl*) 60 Mg Tablet, 60 MG PO Q8H PRN for CONGESTION, TAB 03/22/19 Follow-up Plan FOLLOW UP WITH A PCP IN 1-2 WEEKS, FOLLOW UP WITH A CUSTOMS INSPECTOR Primary Care Provider Care Physician No Primary Time spent on discharge: > 30 minutes MELIA ROSEN Mar 23, 2019 15:22
--- NOTE | 2019-03-27 16:13 | RADRPT ---
Vent Rate: 79 bpm RR Interval: 924 msec MA Interval: 124 msec QRS Duration: 97 msec QT Interval: 404 msec QTC Interval: 420 msec P-R-T [place]: 39 - 57 - 107 degrees Sinus rhythm...normal P axis, V-rate 50- 99 Atrial premature complexes...SV complexes w/ short R-R intvls Abnormal T, consider ischemia, lateral leads...T <-0.20mV, I aVL V5 V6 Electronically Signed By: Moise Lopez
== END 2019-03-23 11:47 | disposition home or self-care (01) | DRG 309 ==
LOC: E/R 16:38 → 6WM 17:43
PROVIDERS: ADMIT Internal Medicine; ATTEND Internal Medicine
DX: I48.91 Unspecified atrial fibrillation (principal); J81.1 Chronic pulmonary edema; E87.0 Hyperosmolality and hypernatremia; I10 Essential (primary) hypertension; N40.0 Benign prostatic hyperplasia without lower urinary tract symptoms
CPT/HCPCS: 36415; 71045; 80048; 80053; 80061; 82550; 82553; 83036; 83735; 83880; 84100; 84436; 84439; 84443; 84479; 84484; 85025; 85610; 93005; 93306; J1940; J7030